=== PATIENT | male | born 1935 | race Caucasian/White ===

== ENCOUNTER 2017-12-07 08:58 | Outpatient (CLI) | payer OTHER ==
[~2017-12-07 08:58] MED LIST: AMIODARONE HCL100 MG; LIPITOR40 MG
== END 2017-12-07 15:01 | disposition home or self-care (01) ==
LOC: RAD 08:58
DX: C10.9 Malignant neoplasm of oropharynx, unspecified (principal); K22.5 Diverticulum of esophagus, acquired